=== PATIENT | male | born 1975 | race African-American/Black ===

== ENCOUNTER 2018-08-31 17:35 | Emergency (ER) | payer SELFPAY ==
[~2018-08-31] VITALS: Ht 188 cm; Wt 117.9 kg
[2018-08-31 17:43] VITALS: BP 138/77
--- NOTE | 2018-08-31 17:48 | PHYS DOC ---
Past Medical History Past Medical History: No Pertinent History Past Surgical History: No Surgical History Alcohol Use: None Drug Use: None Adult General Chief Complaint Chief Complaint: LOWER EXT PAIN HPI HPI 43-year-old male presents to ER via POV with complaints of left lower back pain radiating into his left buttock. Patient states symptoms started 3 days ago and he does have previous history of sciatica. Patient states this episode feels similar to previous sciatic he has experienced. Patient denies any recent falls or injury. Patient denies swelling, incontinence of bowel or bladder, or saddle anesthesia. Patient reports he has been taking Tylenol daily for pain with minimal relief in symptoms. Patient states he has been able to walk unassisted without difficulty. Review of Systems Review of Systems Constitutional: Denies fever or chills [] Eyes: Denies change in visual acuity, redness, or eye pain [] HENT: Denies nasal congestion or sore throat [] Respiratory: Denies cough or shortness of breath [] Cardiovascular: No additional information not addressed in HPI [] GI: Denies abdominal pain, nausea, vomiting, bloody stools or diarrhea [] : Denies dysuria or hematuria [] Musculoskeletal: Denies back pain or joint pain [] Integument: Denies rash or skin lesions [] Neurologic: Denies headache, focal weakness or sensory changes [] Endocrine: Denies polyuria or polydipsia [] All other systems were reviewed and found to be within normal limits, except as documented in this note. Allergies Allergies Allergies Coded Allergies Type Severity Reaction Last Updated Verified No Known Drug Allergies 08/31/18 No Physical Exam Physical Exam Constitutional: Well developed, well nourished, no acute distress, non-toxic appearance. [] HENT: Normocephalic, atraumatic, bilateral external ears normal, oropharynx moist, no oral exudates, nose normal. [] Eyes: PERRLA, EOMI, conjunctiva normal, no discharge. [] Neck: Normal range of motion, no tenderness, supple, no stridor. [] Cardiovascular:Heart rate regular rhythm, no murmur [] Lungs & Thorax: Bilateral breath sounds clear to auscultation [] Abdomen: Bowel sounds normal, soft, no tenderness, no masses, no pulsatile masses. [] Skin: Warm, dry, no erythema, no rash. [] Back: No tenderness, no CVA tenderness. [] Extremities: No tenderness, no cyanosis, no clubbing, ROM intact, no edema. [] Neurologic: Alert and oriented X 3, normal motor function, normal sensory function, no focal deficits noted. [] Psychologic: Affect normal, judgement normal, mood normal. [] Current Patient Data Vital Signs Vital Signs Date Time Temp Pulse Resp B/P (MAP) Pulse Ox O2 Delivery O2 Flow Rate FiO2 08/31/18 17:43 98.6 77 18 138/77 (97) 98 Room Air 98.6 EKG EKG [] Radiology/Procedures Radiology/Procedures [] Course & Med Decision Making Course & Med Decision Making Pertinent Labs and Imaging studies reviewed. (See chart for details) [] Dragon Disclaimer Dragon Disclaimer This electronic medical record was generated, in whole or in part, using a voice recognition dictation system. Departure Departure Impression: Primary Impression: Sciatica of left side Disposition: HOME, SELF-CARE Condition: STABLE Patient Instructions: Sciatica Additional Instructions: Ice and heat application to affected area every 3-4 hours for 20-30 minutes at a time avoiding direct contact of skin with ice. Epson salt soaks as directed on container. Ibuprofen and/or Tylenol as directed on container as needed for pain. If taking Norflex prescription do not drink alcohol or drive. If symptoms persist follow-up with primary care physician for reevaluation and further care. Scripts Prednisone (PREDNISONE) 50 Mg Tablet 1 TAB PO DAILY, #4 TAB Start on 09/01/18 Prov: MARYANN ZIEGLER APRN 08/31/18 Orphenadrine Citrate (ORPHENADRINE CITRATE) 100 Mg Tablet.er 1 TAB PO BID PRN for PAIN, #10 TAB 0 Refills No drinking alcohol or driving if taking this medication Prov: MARYANN ZIEGLER APRN 08/31/18 MARYANN ZIEGLER APRN Aug 31, 2018 17:48
[2018-08-31] MEDS ORDERED: PRED50TA PO (17:54)
[2018-08-31] MEDS ORDERED: ORPH100T PO (17:54)
[2018-08-31] MEDS ORDERED: IBUPROFEN 600 MG TABLET. PO ONE (18:00)
[2018-08-31] MEDS ORDERED: predniSONE 10 MG TABLET PO ONE (18:00)
== END 2018-08-31 18:02 | disposition home or self-care (01) ==
LOC: ER 17:35
DX: M54.42 Lumbago with sciatica, left side (principal)
CPT/HCPCS: 99283; J7512